=== PATIENT | male | born 1970 | race Caucasian/White ===

== ENCOUNTER 2019-09-09 14:54 | Emergency (ER) | payer MEDICAID ==
[~2019-09-09] VITALS: Ht 167.6 cm; Wt 92.1 kg
[2019-09-09 15:02] VITALS: Ht 167.6 cm; Wt 92.1 kg
[2019-09-09 15:59] VITALS: BP 155/92
== END 2019-09-09 15:59 | disposition home or self-care (01) ==
LOC: ED 14:54
DX: S29.012A Strain of muscle and tendon of back wall of thorax, initial encounter (principal); X58.XXXA Exposure to other specified factors, initial encounter; Y93.89 Activity, other specified; Y92.89 Other specified places as the place of occurrence of the external cause; Y99.8 Other external cause status
CPT/HCPCS: J3010